=== PATIENT | male | born 2000 | race American Indian/Alaskan Native ===

== ENCOUNTER 2018-05-15 16:22 | Emergency (ER) | payer OTHER ==
[2018-05-15 16:34] VITALS: BP 127/66
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
[2018-05-15] MEDS: MOTRIN PO ONE (18:11)
== END 2018-05-15 19:22 | disposition home or self-care (01) ==
LOC: ED 16:22
DX: M25.511 Pain in right shoulder (principal); M54.5 Low back pain; V49.49XA Driver injured in collision with other motor vehicles in traffic accident, initial encounter; Y93.89 Activity, other specified; Y92.89 Other specified places as the place of occurrence of the external cause; Y99.8 Other external cause status
CPT/HCPCS: 99282